=== PATIENT | female | born 1995 | race Caucasian/White ===

== ENCOUNTER 2024-09-26 13:00 | Inpatient (IN) | payer OTHER ==
[~2024-09-26] VITALS: Ht 162.6 cm; Wt 66.2 kg
[~2024-09-26 13:00] MED LIST: CEFUROXIME500 MG PO; MEDROLPACK PO; PRENATAL TABLE1 EAC1; ZYRTEC10 MG PO
[2024-09-30 14:59] VITALS: BP 122/69
[2024-09-30] MEDS ORDERED: AMPICILLIN TRI500 MG (16:06)
[2024-09-30] MEDS ORDERED: AMPICILLIN SODIUM 1,000 MG VIAL IV SCH ×2 (16:10→20:00)
[2024-09-30] MEDS ORDERED: AMPICILLIN SODIUM 2,000 MG VIAL IV ONE (16:15)
[2024-09-30] MEDS ORDERED: RINGERS SOLUTION,LACTATED 1,000 ML IV SCH (16:15)
[2024-09-30 17:24] LABS: BASO % 0.3 % (0.1-1.2); EOS # 0.01 (0.04-0.54); EOS % 0.1 % (0.7-7.0); HEMATOCRIT 40.3 % (34.1-44.9); HEMOGLOBIN 13.7 g/dL (11.2-15.7); LYMPH # 0.66 (1.18-3.74); LYMPH % 8.3 % (19.3-53.1); MEAN CORPUSCULAR HEMOGLOBIN 29.2 pg (25.6-32.2); MONO # 0.61 (0.24-0.82); MONO % 7.7 % (4.7-12.5); NEUT # 6.58 (1.56-6.13); NEUT % 83.1 % (34.0-71.1); PLATELET COUNT 137 K/uL (163-369); RED BLOOD COUNT 4.69 M/uL (3.93-5.22)
[2024-09-30 17:25] LABS: PH,URINE 5.5 (5.0-8.0); URINE APPEARANCE Cloudy; URINE BILIRRUBIN Negative (NEGATIVE); URINE BLOOD Negative; URINE COLOR Yellow; URINE GLUCOSE Negative (NEGATIVE); URINE KETONE 15 (NEGATIVE); URINE LEUKOCYTE Large; URINE NITRATE Negative; URINE PROTEIN Trace (NEGATIVE); URINE UROBILINOGEN 0.2 E.U./dl
[2024-09-30 17:29] LABS: URINE EPITHELIAL CELLS 103.5 uL (0.0-38.8); URINE RBC 2.7 uL (0.0-20.8); URINE WBC 61.4 uL (0.0-23.2)
[2024-09-30 17:33] LABS: URINE CAST 0.58 uL (0.0-1.40)
[2024-09-30 17:45] LABS: TYPE CELLS SQUAMOUS; URINE MUCUS SCANT; URINE YEAST FEW /hpf
[2024-09-30 17:46] LABS: URINE CRYSTALS FEW /HPF
[2024-09-30 17:48] LABS: INR 0.94; PARTIAL THROMBOPLASTIN TIME 30.6 SECONDS (22.0-34.0); PROTHROMBIN TIME 10.3 SECONDS (9.0-11.5)
[2024-09-30 17:56] LABS: ALBUMIN 2.9 gm/dL (3.4-5.0); BILIRUBIN TOTAL 0.61 mg/dL (0.3-1.2); CALCIUM 9.1 mg/dL (8.5-10.1); CREATININE SERUM 0.64 mg/dL (0.55-1.02); GFR 110.49; GLOBULINA 2.8 G/DL (2.4-3.5); POTASSIUM 3.88 mEq/L (3.5-5.1); TOTAL PROTEIN 5.7 gm/dL (6.4-8.2)
[2024-09-30 19:00] VITALS: BP 104/50
[2024-09-30 23:28] VITALS: BP 114/50
[2024-10-01] VITALS (8 sets, daily range): BP systolic 110–130; BP diastolic 55–72
[2024-10-01] MEDS ORDERED: OXYTOCIN 500 ML IV SCH (06:30)
[2024-10-01] MEDS ORDERED: OXYTOCIN 20 UNITS/1000ML RL PIGGYBAG IV ONE (08:32)
[2024-10-01] MEDS ORDERED: LIDOCAINE HCL 1% 10ML VIAL ONE (08:32)
[2024-10-01] MEDS ORDERED: ERYTHROMYCIN BASE OPHT 1GM EACH TUBE OP ONE ×2 (08:32→10:00)
[2024-10-01] MEDS ORDERED: CHLORHEXIDINE GLUCONATE 120 ML BOTTLE TOP ONE ×2 (08:32→10:00)
[2024-10-01] MEDS ORDERED: LIDOCAINE HCL 1% 10ML VIAL IJ ONE (10:00)
[2024-10-01] MEDS ORDERED: ACETAMINOPHEN 500 MG GEL..CAP PO PRN (10:00)
[2024-10-01] MEDS ORDERED: IBUprofen 800 MG TABLET PO PRN (10:00)
[2024-10-01] MEDS ORDERED: OXYTOCIN 1,000 ML IV SCH (10:30)
[2024-10-01] MEDS ORDERED: HYDROCORTISONE 2.5% 30 GM TUBE RECTAL SCH (13:00)
[2024-10-01] MEDS ORDERED: BENZOCAINE/MENTHOL 90 ML BOTTLE TOP SCH (13:00)
[2024-10-02 01:28] VITALS: BP 95/66
[2024-10-02 01:48] LABS: BASO % 0.2 % (0.1-1.2); EOS # 0.04 (0.04-0.54); EOS % 0.4 % (0.7-7.0); HEMATOCRIT 41.7 % (34.1-44.9); HEMOGLOBIN 14.2 g/dL (11.2-15.7); LYMPH % 13.5 % (19.3-53.1); MEAN CORPUSCULAR HEMOGLOBIN 29.5 pg (25.6-32.2); MONO # 1.14 (0.24-0.82); MONO % 10.2 % (4.7-12.5); NEUT # 8.42 (1.56-6.13); NEUT % 75.5 % (34.0-71.1); PLATELET COUNT 152 K/uL (163-369); RED BLOOD COUNT 4.81 M/uL (3.93-5.22); RED CELL DISTRIBUTION WIDTH 11.9 % (11.6-14.4)
[2024-10-02 08:55] VITALS: BP 129/80
[2024-10-02 16:00] VITALS: BP 109/76
[2024-10-03 01:12] VITALS: BP 119/79
[2024-10-03 09:40] VITALS: BP 114/73
== END 2024-10-03 13:20 | disposition home or self-care (01) | DRG 807 ==
LOC: LDR 09-30 16:03 → OB/GYN 10-01 12:24
PROVIDERS: ADMIT Specialist; ATTEND Specialist
PROC: 0UQG7ZZ Repair Vagina, Via Natural or Artificial Opening (ICD-10-PCS; 2024-09-30)
PROC: 4A1HXCZ Monitoring of Products of Conception, Cardiac Rate, External Approach (ICD-10-PCS; 2024-09-30)
PROC: 10E0XZZ Delivery of Products of Conception, External Approach (ICD-10-PCS; principal; 2024-10-01)
DX: O71.4 Obstetric high vaginal laceration alone (principal); Z37.0 Single live birth; O99.824 Streptococcus B carrier state complicating childbirth; O32.1XX0 Maternal care for breech presentation, not applicable or unspecified; Z3A.39 39 weeks gestation of pregnancy